=== PATIENT | female | born 1965 | race Caucasian/White ===

== ENCOUNTER 2017-09-09 15:00 | Inpatient (IN) | payer MEDICARE ==
[2017-10-19 15:16] VITALS: BMI 29.9
[2017-10-28] MEDS ORDERED: Fentanyl 100 MCG/2 ML VIAL ONE ×4 (07:35→15:32)
[2017-10-28] MEDS ORDERED: Midazolam HCl 2 mg/2 ml Vial ONE (07:35)
[2017-10-28] MEDS ORDERED: Dexamethasone 4 mg/ml Vial ONE (07:36)
[2017-10-28] MEDS ORDERED: CEFAZOLIN/Water 2 GM/20 ML SYRINGE ONE (07:43)
[2017-10-28] MEDS ORDERED: Levofloxacin 500 mg/D5W 100 ml Premix Bag ONE (07:44)
[2017-10-28] MEDS ORDERED: Bupivacaine PF 0.5% 30 ML VIAL ONE (10:16)
[2017-10-28] MEDS ORDERED: Bupivacaine HCl 0.5%/Epinephrine 1:200,000/PF 30 ml Vial ONE (10:16)
[2017-10-28] MEDS ORDERED: Dexamethasone 20 MG/5 ML VIAL ONE (10:34)
[2017-10-28] MEDS ORDERED: Lidocaine 1% PF 5 ML VIAL ONE (10:34)
[2017-10-28] MEDS ORDERED: Ondansetron HCl/PF 4 MG/2 ML Vial ONE (10:34)
[2017-10-28] MEDS ORDERED: Glycopyrrolate 0.2 MG/ML 5 ML SYRINGE ONE (10:34)
[2017-10-28] MEDS ORDERED: PROPOFOL 200 MG/20 ML VIAL ONE (10:34)
[2017-10-28] MEDS ORDERED: Rocuronium Bromide 50 MG/5 ML VIAL ONE (13:07)
[2017-10-28] MEDS ORDERED: Promethazine HCl 25 MG/ML VIAL SLOW IVP PRN (14:45)
[2017-10-28] MEDS ORDERED: Meperidine HCl/PF 25 MG/ML VIAL SLOW IVP PRN (14:45)
[2017-10-28] MEDS ORDERED: Ondansetron HCl/PF 4 MG/2 ML Vial IVP PRN ×2 (14:45→18:04)
[2017-10-28] MEDS ORDERED: HYDROmorphone 2 MG/ML VIAL SLOW IVP PRN (14:45)
[2017-10-28] MEDS ORDERED: Promethazine HCl 25 MG/ML VIAL IM PRN ×2 (14:45→18:04)
[2017-10-28] MEDS ORDERED: Docusate 100 MG CAP PO PRN (15:16)
[2017-10-28] MEDS ORDERED: diphenhydrAMINE 25 MG CAP PO PRN ×2 (15:16→18:04)
[2017-10-28] MEDS ORDERED: Dextrose 50% Abboject 50 ML SYRINGE SLOW IVP PRN (15:16)
[2017-10-28] MEDS ORDERED: Dextrose 5% in Water 1,000 ML IV PRN (15:16)
[2017-10-28] MEDS ORDERED: Bisacodyl 10 MG SUPP PR PRN (15:16)
[2017-10-28] MEDS ORDERED: oxyCODONE 5 MG TAB PO PRN ×2 (15:16)
[2017-10-28] MEDS ORDERED: Fentanyl 100 MCG/2 ML VIAL SLOW IVP PRN (15:16)
[2017-10-28] MEDS ORDERED: hydrALAZINE 20 MG/ML VIAL SLOW IVP PRN (15:16)
[2017-10-28] MEDS ORDERED: Mag-Al 1200 mg/1200 mg/30 ML UDCUP PO PRN (15:16)
[2017-10-28] MEDS ORDERED: Oxybutynin 5 MG TAB PO PRN (15:16)
[2017-10-28] MEDS ORDERED: traMADol HCl 50 MG TAB PO SCH (16:00)
[2017-10-28] MEDS ORDERED: HYDROmorphone 0.5 MG/0.5 ML SYRINGE ONE (16:05)
[2017-10-28 16:24] LABS: Hemoglobin 13.9 g/dL (12.0-16.0); Mean Corpuscular HGB CONC 32.8 g/dL (32.0-36.0); Mean Corpuscular Hemoglobin 29.3 pg (27.0-31.0); Mean Corpuscular Volume 89.4 fl (81.0-99.0); Mean Platelet Volume 6.7 fL (7.4-10.4); Platelet Count 218 thou/uL (130-400); RBC Distribution Width 13.1 % (11.5-14.5); Red Blood Cell (RBC) Count 4.75 mill/uL (4.20-5.40); White Blood Cell (WBC) Count 8.7 thou/uL (4.8-10.8)
[2017-10-28 16:42] LABS: Anion Gap 18 mmol/L (10-20); BUN (Urea Nitrogen) 21 mg/dL (9.8-20.1); Calc. Creatinine Clearance 87 mL/min (70-130); Calcium 9.2 mg/dL (7.8-10.44); Carbon Dioxide 23 mmol/L (22-29); Chloride 101 mmol/L (98-107); Estimated GFR-MDRD 61; Glucose 294 mg/dL (70-105); Potassium 4.5 mmol/L (3.5-5.1); Sodium 137 mmol/L (136-145)
--- NOTE | 2017-10-28 16:57 | RAD ---
RADIOGRAPH OF CHEST SINGLE FRONTAL VIEW 10/28/17 COMPARISON: 10/19/17 CLINICAL HISTORY: Status post removal of renal mass. FINDINGS: There is alveolar opacification of the right lower lung zone. Mild atelectasis seen at the left lung base. The cardiac silhouette is accentuated with portable technique. There is vascular calcification and mild osseous degenerative change. IMPRESSION: Focal patchy opacity of the right lower lung zone. This may relate to atelectasis or pneumonitis. Con tinued followup is recommended. POS: [facility]
--- NOTE | 2017-10-28 17:31 | OP ---
DATE OF PROCEDURE: 10/28/2017 SERVICE: Urology. SURGEON: José Miguel Cleveland M.D. PREOPERATIVE DIAGNOSIS: Left renal mass. POSTOPERATIVE DIAGNOSIS: Left renal mass. PROCEDURE PERFORMED: Robot-assisted laparoscopic partial nephrectomy on the left with intraoperative laparoscopic ultrasound. INDICATIONS FOR PROCEDURE: Ms. Hobbs is a 52-year-old white female who was initially sent to [facility] due to an incidentally discovered small renal mass only measuring about 1.5 cm. She was a good can didate for nephron sparing surgery as this was a relatively exophytic lesion. Risks and benefits of robot-assisted laparoscopic partial nephrectomy were discussed and she has agreed to proceed forward. DESCRIPTION OF PROCEDURE: After identification of armband and verification of consent, the patient w as brought back to the operating room where she underwent general anesthesia with endotracheal intuba tion. She was then placed in the right lateral decubitus position with the bed flexed and the kidney rest up for adequate positioning. She was then prepped and draped in the usual sterile fashion. Af ter appropriate timeout, entry was made into the peritoneum with a Veress needle with insufflation ca rried out under high flow and low pressure. Once 15 mmHg was reached, a 12 mm port was placed at the camera site just lateral to the rectus muscle. A #1 and #2 robotic arms were placed in the usual fa shion for partial nephrectomy with the third care assistant port placed in the left lower quadrant. One a ssistant 12 mm port was placed as well just left of the camera port. A few adhesions had to be taken down before the robot was docked to allow for proper entry of the robotic instruments, then the robo t was docked in the standard fashion. A dissection was started with the monopolar scissors and fenes trated bipolar with ProGrasp in the third arm. The remaining adhesions near the spleen were taken do wn and the colon was mobilized by incising the white line of Toldt along the peritoneum and reflectin g the colon medially. The spleen was released from the splenocolic and splenorenal ligaments and fro m the splenodiaphragmatic ligaments to allow proper mobilization of the spleen cephalad. Once the co ben had been adequately mobilized medially, dissection was begun on the inferior pole of the kidney d issecting out the gonadal vein. The gonadal vein was identified and subsequently the ureter identifi ed posterior and medial so that the gonadal vein was dissected cephalad until the renal vein was enco untered. At this point, we decided to change course and go to see if the renal mass could be enuclea max without clamping. The Gerota's fascia was incised and the perinephric fat removed and rotated ce phalad to keep the vascular pedicle to maintain blood supply. The kidney surface was exposed and the renal cyst was identified which was immediately adjacent to the renal mass. Intraoperative ultrasou nd was used to identify the cyst. It was indeed just a simple cyst without any complex features and the renal mass was just adjacent to this. The renal mass was measured with intraoperative ultrasound and found to be approximately 1.2 x 1.5 cm with a 1.2 cm depth. I felt this would be adequate to ex cise well with a partial nephrectomy. The cyst was punctured and the fluid and contents removed and the cyst unroofed. The wall of the cyst was cauterized with monopolar to destroy the epithelial lini ng to ensure that the cyst did not recur. The mass could be seen bulging into the cyst wall and atte mpts to dissect it began bleeding slightly. I then decided it would probably best not to try to atte mpt to do the renal mass dissection off clamp and we went back to the renal hilum. The gonadal vein was sacrificed by putting Hem-o-Gabriela clip on either side and dividing the gonadal vein. By retracting the renal vein cephalad, the renal artery and aorta could be identified. The stalk of the renal art geovanna could be seen coming off of the aorta and at this part, it was dissected completely free, taking care to avoid the potential large lumbar branch which was noted on CT to be going posteriorly. I did not feel it was comfortable trying to get circumferential access from the renal artery out of fear o f potentially injuring this lumbar artery. Therefore, three-quarters of the renal artery were dissec max leaving the posterior segment intact. Once we had all instruments ready, a bulldog clamp was mustapha lied on the renal artery which immediately caused the kidney to go white. The previously noted minor bleeding from the renal mass stopped indicating that there was good cessation of blood flow to the k idney. The dissection around the renal mass was then completed using a combination of sharp dissecti on with cautery around the periphery and cortex. The renal collecting system was not entered due to the superficial nature of the mass. The mass was completely excised and the borders looked clean. T his was then deposited into the left pericolic gutter for later retrieval. There was some minor blee ding from 2 patent arteries at the base of the resection bed that was very slow but would indicate li steph aggressive bleeding once the clamp was released. Therefore a 2-0 Vicryl in a running fashion wa s used to close the bed of the kidney. Then the main defect in renal orifice was performed with 0 Vi cryl with Hem-o-Loks on the end, used to slide in the sliding maneuver to cinch up the defect and a L apra-Ty used to secure the Hem-o-Gabriela in place. Approximately, 4 individual sutures were placed to cl ose the defect and this did result in adequate hemostasis. The clamp was taken off with a total warm ischemia time of 20 minutes with good reperfusion of the kidney. There was not noted to be any sign ificant bleeding coming from the renal orifice site which was very content with. The hilum was inspe cted and there did not appear to be any bleeding or damage to the renal hilar vasculature. The renal orifice site was then covered with FloSeal and then Surgicel. The fat that had been rotated cephala d was then rotated back over to the kidney again and sutured in place with a single 0 Vicryl to ensur e that it did not fall off the kidney. A specimen bag was then used to retrieve the tumor which cons isted of three parts, the tumor itself, a cap of perinephric fat as well as a small piece which had b een dissected separately. This was able to be removed through the laparoscopic port given the small nature of the renal mass. The peritoneum was then irrigated and a drain placed in the left pericolic gutter. The robot was then undocked and the two #12 ports, one for the camera and one for the krystyna tant were closed with a Benito-Dori needle with 0 Vicryl with good closure of the fascia. The po rts were then removed and the skin closed with a 4-0 Monocryl in a subcuticular fashion with Dermabon d applied. A drain stitch was applied with a 3-0 nylon on the #19 KRYSTA drain. The patient was then ta yuval out of positioning in to the supine position, extubated, awakened and taken to PACU for recovery in stable condition. COMPLICATIONS: None. ESTIMATED BLOOD LOSS: 75 mL RETAINED TUBES AND DRAINS: A 16 Hebrew Calderón catheter with a #19 KRYSTA drain. SPECIMENS: Left renal mass. DISPOSITION: Patient will be admitted to the hospital for postoperative recovery. She will be disch arged once she has recovered adequately and her follow up will be then handled on an outpatient basis .
[2017-10-28] MEDS ORDERED: Fentanyl 5000 MCG/250 ML CADD IVPB PRN (18:04)
[2017-10-28] MEDS ORDERED: diphenhydrAMINE 50 MG/ML VIAL IM PRN (18:04)
[2017-10-28] MEDS ORDERED: Naloxone HCl 0.4 mg/ml Vial IV PRN (18:04)
[2017-10-28] MEDS ORDERED: Ketorolac Tromethamine 30 MG/ML VIAL IVP PRN (18:04)
[2017-10-28] MEDS ORDERED: diphenhydrAMINE 50 MG/ML VIAL IVP PRN (18:04)
[2017-10-28] MEDS ORDERED: Zolpidem Tartrate 5 MG TAB PO PRN (18:04)
[2017-10-28] MEDS ORDERED: Communication Order-Pharmacy FS SCH (18:15)
[2017-10-28] MEDS: fentaNYL Citrate/PF 2,000 MCG in Sodium Chloride 0.9% 60 ML IV PRN (18:49)
[2017-10-28] MEDS: Acetaminophen 500 MG TAB PO SCH (19:08)
[2017-10-28] MEDS: Sodium Chloride 0.9% 1,000 ML IV SCH (20:39)
[2017-10-28] MEDS: busPIRone HCl 10 MG TAB PO SCH (20:40)
[2017-10-28] MEDS: cefOXitin 1.5 GM, Admixture Fee 1 EACH in Sterile Water 8.33 ML SLOW IVP SCH (20:40)
[2017-10-28] MEDS: Latanoprost 0.005% Ophth Soln 2.5 ml Bottle EA EYE SCH (20:40)
[2017-10-28] MEDS: hydrOXYzine 25 MG TAB PO SCH (20:41)
[2017-10-28] MEDS: OXcarbazepine 150 MG TAB PO SCH (20:41)
[2017-10-28] MEDS: PRE FILLED SC SCH (20:48)
[2017-10-28] MEDS: INSULIN DETEMIR SC SCH (20:48)
[2017-10-28] MEDS ORDERED: cefOXitin 1.5 GM in Sodium Chloride 0.9% 100 ML IVPB SCH (22:00)
[2017-10-29 05:28] LABS: #Lymphocytes 1.4 thou/uL (1.20-3.40); #Monocytes 0.7 thou/uL (0.11-0.59); #Neutrophils 6.5 thou/uL (1.40-6.50); %Basophils 0.3 % (0.0-1.0); %Eosinophils 0.1 % (0.0-10.0); %Lymphocytes 16.1 % (21.0-51.0); %Neutrophils 75.4 % (42.0-75.0); Hemoglobin 12.9 g/dL (12.0-16.0); Mean Corpuscular HGB CONC 35.4 g/dL (32.0-36.0); Mean Corpuscular Hemoglobin 31.9 pg (27.0-31.0); Mean Platelet Volume 6.6 fL (7.4-10.4); Platelet Count 201 thou/uL (130-400); RBC Distribution Width 12.9 % (11.5-14.5); Red Blood Cell (RBC) Count 4.05 mill/uL (4.20-5.40); White Blood Cell (WBC) Count 8.6 thou/uL (4.8-10.8)
[2017-10-29 05:56] LABS: Anion Gap 13 mmol/L (10-20); BUN (Urea Nitrogen) 15 mg/dL (9.8-20.1); Calc. Creatinine Clearance 108 mL/min (70-130); Calcium 8.8 mg/dL (7.8-10.44); Carbon Dioxide 25 mmol/L (22-29); Chloride 104 mmol/L (98-107); Estimated GFR-MDRD 78; Glucose 130 mg/dL (70-105); Potassium 4.4 mmol/L (3.5-5.1); Sodium 138 mmol/L (136-145)
[2017-10-29] MEDS: Acetaminophen 500 MG TAB PO SCH ×2 (06:29)
[2017-10-29] MEDS: Sodium Chloride 0.9% 1,000 ML IV SCH (06:29)
[2017-10-29] MEDS: cefOXitin 1.5 GM, Admixture Fee 1 EACH in Sterile Water 8.33 ML SLOW IVP SCH ×2 (06:29→17:40)
[2017-10-29] MEDS: busPIRone HCl 10 MG TAB PO SCH ×3 (08:27→20:08)
[2017-10-29] MEDS: Atorvastatin Calcium 20 MG TAB PO SCH (08:28)
[2017-10-29] MEDS: FLUoxetine HCl 20 MG CAP PO SCH (08:28)
[2017-10-29] MEDS: Pantoprazole 40 MG GRANULES PACKET PO SCH (08:28)
[2017-10-29] MEDS: Lisinopril/Hydrochlorothiazide 20/25 mg Tablet PO SCH (08:28)
[2017-10-29] MEDS: OXcarbazepine 150 MG TAB PO SCH ×2 (08:29→20:08)
[2017-10-29] MEDS: fentaNYL Citrate/PF 2,000 MCG in Sodium Chloride 0.9% 60 ML IV PRN ×2 (11:01→20:10)
[2017-10-29] MEDS: Acetaminophen 1,000 MG in Premix Bag 1 BAG IVPB SCH ×3 (11:01→23:18)
--- NOTE | 2017-10-29 15:59 | PRG ---
DATE OF SERVICE: 10/29/2017 SUBJECTIVE: The patient was having significant pain overnight, which was not well controlled on petey vargas US protocol medications. I consulted pain management service, which had started her on a SALON SHAMPOO ASSISTANT ov ernwendy and she is now feeling better. She reports her pain is currently a 4/10. She has not gotten out of bed as I had her on bed rest overnight. She has not passed any gas. She states she has no a ppetite, but has been taking good p.o. liquid. She denies any chest pain or shortness of breath. OBJECTIVE: VITAL SIGNS: Temperature 98.4, pulse 85, respirations 14, blood pressure 115/73, saturation 94% on 2 liters nasal cannula. GENERAL: No apparent distress, appears relatively comfortable. CARDIOVASCULAR: Regular rate and rhythm. CHEST: No increased work of breathing. ABDOMEN: Soft, appropriately tender to palpation, nondistended. Incisions clean, dry, and intact. KRYSTA drain with scant serosanguineous output. GENITOURINARY: Calderón catheter in place with clear yellow urine secured. EXTREMITIES: No clubbing, cyanosis or edema. SCDs in place. LABORATORY DATA AND X-RAY FINDINGS: The full set of labs are in the [employer] system, which I have re viewed. Of note, the patient's hemoglobin is 12.9 with a platelet count of 201. Creatinine is curre ntly 0.77. Chest x-ray from yesterday demonstrates focal consolidation in the right lower lobe, but no evidence of pneumothorax. ASSESSMENT AND PLAN: A 52-year-old white female with likely malignant renal mass, status post roboti c left partial nephrectomy, recovering appropriately. Her pain seems to be better controlled. I alisa l leave her with the SALON SHAMPOO ASSISTANT today, but I have told her that we will need to transition her back off of t he SALON SHAMPOO ASSISTANT back to oral pain medication. As time progresses, her pain should improve. I lifted the bed rest restriction and have her get up out of bed and walk today. We will discontinue her catheter. H er diet can be advanced as tolerated to a regular diet. We will discontinue her intravenous fluids f or now unless she is taking poor, continued p.o. intake, at which time we will restart IV fluids. On ce she is able to ambulate well, tolerated a regular diet, have her pain controlled with oral medicat ions only and continues to have normal laboratory and vital profile, then she can be discharged home and her followup care can be handled on an outpatient basis. Dr. Lord will be covering for me over the weekend and will see her in my status.
[2017-10-29] MEDS: Ondansetron HCl/PF 4 MG/2 ML Vial IVP PRN (17:39)
[2017-10-29] MEDS: Latanoprost 0.005% Ophth Soln 2.5 ml Bottle EA EYE SCH (20:08)
[2017-10-29] MEDS: hydrOXYzine 25 MG TAB PO SCH (20:09)
[2017-10-29] MEDS: PRE FILLED SC SCH (20:09)
[2017-10-29] MEDS: INSULIN DETEMIR SC SCH (20:09)
[2017-10-30 05:03] LABS: #Basophils 0.1 thou/uL (0.0-0.2); #Eosinphils 0.1 thou/uL (0.0-0.7); #Lymphocytes 1.3 thou/uL (1.20-3.40); #Monocytes 0.4 thou/uL (0.11-0.59); #Neutrophils 4.3 thou/uL (1.40-6.50); %Basophils 1.1 % (0.0-1.0); %Lymphocytes 20.5 % (21.0-51.0); %Monocytes 6.7 % (0.0-10.0); %Neutrophils 70.6 % (42.0-75.0); Mean Corpuscular HGB CONC 33.5 g/dL (32.0-36.0); Mean Corpuscular Hemoglobin 30.2 pg (27.0-31.0); Mean Corpuscular Volume 90.1 fl (81.0-99.0); Mean Platelet Volume 6.7 fL (7.4-10.4); Platelet Count 186 thou/uL (130-400); Red Blood Cell (RBC) Count 3.97 mill/uL (4.20-5.40); White Blood Cell (WBC) Count 6.1 thou/uL (4.8-10.8)
[2017-10-30] MEDS: Ondansetron HCl/PF 4 MG/2 ML Vial IVP PRN ×2 (05:05→09:31)
[2017-10-30] MEDS: Acetaminophen 1,000 MG in Premix Bag 1 BAG IVPB SCH ×2 (05:05→10:25)
[2017-10-30 05:26] LABS: Anion Gap 11 mmol/L (10-20); BUN (Urea Nitrogen) 13 mg/dL (9.8-20.1); Calc. Creatinine Clearance 114 mL/min (70-130); Calcium 8.8 mg/dL (7.8-10.44); Carbon Dioxide 26 mmol/L (22-29); Chloride 101 mmol/L (98-107); Estimated GFR-MDRD 83; Glucose 170 mg/dL (70-105); Potassium 3.6 mmol/L (3.5-5.1); Sodium 134 mmol/L (136-145)
--- NOTE | 2017-10-30 10:00 | PRG ---
DATE OF SERVICE: 10/30/2017 SUBJECTIVE: The patient did well overnight and has no specific complaints. She is not nauseous. Sh sandrine has been passing gas and tolerating liquids. She recognizes she needs to be ambulating more as she has not. OBJECTIVE: VITAL SIGNS: T-max is 99, temperature 98.4, heart rate elevated at 100-104, blood pressure is stable , and 93%, prior 88% on room air. GENERAL: She is lying in the bed. She is able to sit up with assistance and do incentive spirometry . LUNGS: Clear to auscultation with expiratory wheeze. ABDOMEN: Softly distended and appropriately tender. LABORATORY DATA: Her H and H are stable at 12.0 and 35.8, creatinine is good at 0.73. ASSESSMENT AND PLAN: A 52-year-old status post partial nephrectomy, postoperative day #2, still rece iving IV pain medications with minimal ambulation and the respiratory effort. I emphasized the need to ambulate using incentive spirometer and potentially the need for oxygen if she does not do these t hings. We will try to switch over to oral pain medicines today.
[2017-10-30] MEDS: Pantoprazole 40 MG GRANULES PACKET PO SCH (10:25)
[2017-10-30] MEDS: busPIRone HCl 10 MG TAB PO SCH ×3 (10:25→20:05)
[2017-10-30] MEDS: Lisinopril/Hydrochlorothiazide 20/25 mg Tablet PO SCH (10:26)
[2017-10-30] MEDS: Atorvastatin Calcium 20 MG TAB PO SCH (10:26)
[2017-10-30] MEDS: FLUoxetine HCl 20 MG CAP PO SCH (10:26)
[2017-10-30] MEDS: OXcarbazepine 150 MG TAB PO SCH ×2 (10:35→20:06)
[2017-10-30] MEDS ORDERED: HYDROcodone/Acetaminophen 5/325 mg Tablet PO PRN (12:28)
[2017-10-30] MEDS ORDERED: Morphine 2 MG/ML SYRINGE SLOW IVP PRN (12:34)
[2017-10-30] MEDS: Diazepam 5 MG TAB PO PRN (13:01)
[2017-10-30] MEDS: HYDROcodone/Acetaminophen 5/325 mg Tablet PO PRN ×2 (16:55→21:20)
[2017-10-30] MEDS: traMADol HCl 50 MG TAB PO SCH (16:56)
[2017-10-30] MEDS: hydrOXYzine 25 MG TAB PO SCH (20:06)
[2017-10-30] MEDS: Latanoprost 0.005% Ophth Soln 2.5 ml Bottle EA EYE SCH (20:14)
[2017-10-30] MEDS ORDERED: Docusate 100 MG CAP PO SCH (21:00)
[2017-10-30] MEDS: PRE FILLED SC SCH (21:14)
[2017-10-30] MEDS: INSULIN DETEMIR SC SCH (21:14)
[2017-10-30] MEDS: Insulin Regular 300 UNITS/3 ML VIAL SC PRN (21:21)
[2017-10-31] MEDS: traMADol HCl 50 MG TAB PO SCH ×4 (00:13→17:07)
[2017-10-31] MEDS: Diazepam 5 MG TAB PO PRN ×2 (00:13→12:44)
[2017-10-31] MEDS: HYDROcodone/Acetaminophen 5/325 mg Tablet PO PRN ×5 (01:34→20:58)
[2017-10-31 04:44] LABS: #Eosinphils 0.1 thou/uL (0.0-0.7); #Lymphocytes 1.9 thou/uL (1.20-3.40); #Monocytes 0.5 thou/uL (0.11-0.59); #Neutrophils 3.9 thou/uL (1.40-6.50); %Basophils 0.4 % (0.0-1.0); %Eosinophils 1.6 % (0.0-10.0); %Lymphocytes 28.8 % (21.0-51.0); %Monocytes 8.1 % (0.0-10.0); %Neutrophils 61.1 % (42.0-75.0); Hemoglobin 11.7 g/dL (12.0-16.0); Mean Corpuscular Hemoglobin 29.2 pg (27.0-31.0); Mean Corpuscular Volume 88.6 fl (81.0-99.0); Mean Platelet Volume 6.7 fL (7.4-10.4); Platelet Count 193 thou/uL (130-400); RBC Distribution Width 12.5 % (11.5-14.5); Red Blood Cell (RBC) Count 4.01 mill/uL (4.20-5.40); White Blood Cell (WBC) Count 6.4 thou/uL (4.8-10.8)
[2017-10-31 04:56] LABS: Anion Gap 13 mmol/L (10-20); BUN (Urea Nitrogen) 11 mg/dL (9.8-20.1); Calc. Creatinine Clearance 108 mL/min (70-130); Calcium 9.3 mg/dL (7.8-10.44); Carbon Dioxide 29 mmol/L (22-29); Chloride 98 mmol/L (98-107); Estimated GFR-MDRD 78; Glucose 134 mg/dL (70-105); Potassium 3.1 mmol/L (3.5-5.1); Sodium 137 mmol/L (136-145)
[2017-10-31] MEDS ORDERED: Potassium Chloride 20 MEQ TAB PO SCH (08:30)
[2017-10-31] MEDS: busPIRone HCl 10 MG TAB PO SCH ×3 (09:31→20:53)
[2017-10-31] MEDS: Atorvastatin Calcium 20 MG TAB PO SCH (09:31)
[2017-10-31] MEDS: FLUoxetine HCl 20 MG CAP PO SCH (09:32)
[2017-10-31] MEDS: Lisinopril/Hydrochlorothiazide 20/25 mg Tablet PO SCH (09:33)
[2017-10-31] MEDS: OXcarbazepine 150 MG TAB PO SCH ×2 (09:33→20:56)
[2017-10-31] MEDS: Pantoprazole 40 MG GRANULES PACKET PO SCH (09:34)
[2017-10-31] MEDS: Insulin Regular 300 UNITS/3 ML VIAL SC PRN ×2 (15:59→21:00)
--- NOTE | 2017-10-31 18:53 | PRG ---
DATE OF SERVICE: 10/31/2017. SUBJECTIVE: The patient did well overnight. She does not recall even getting any IV pain medicine and she has no complaints of significant pain at this time ; however, it does look like she got one dose about 7:00 p.m. the night before. She has otherwise been tolerating pain medicine by mouth. She has not had significant solid intake, but has been taking in liquids and still passing gas without any nausea or vomiting. OBJECTIVE: Her vitals have been stable and afebrile and her saturations improved from the day prior. On exam, she is comfortable in the bed. Her incisions are clean, dry, and intact with ecchymosis around them noted and appropriately tender. Laboratory values reveal an H&H of 11.7 and 35.6, so this has been stable. Creatinine is 0.77 and she has been registered as voiding without measuring any specific amount. ASSESSMENT AND PLAN: This is a 52-year-old female status post partial nephrectomy, doing well. As long as she has not required any IV medications, then she is stable enough to be discharged to home. At this time, we reviewed this and Dr. Cleveland has left her prescriptions and set a followup. HANSA
[2017-10-31] MEDS: hydrOXYzine 25 MG TAB PO SCH (20:53)
[2017-10-31] MEDS: INSULIN DETEMIR SC SCH (20:54)
[2017-10-31] MEDS: PRE FILLED SC SCH (20:54)
[2017-10-31] MEDS: Latanoprost 0.005% Ophth Soln 2.5 ml Bottle EA EYE SCH (20:55)
[2017-11-01] MEDS: traMADol HCl 50 MG TAB PO SCH ×3 (00:09→12:07)
[2017-11-01 05:32] LABS: #Eosinphils 0.2 thou/uL (0.0-0.7); #Lymphocytes 1.4 thou/uL (1.20-3.40); #Monocytes 0.4 thou/uL (0.11-0.59); #Neutrophils 2.2 thou/uL (1.40-6.50); %Basophils 0.5 % (0.0-1.0); %Eosinophils 4.4 % (0.0-10.0); %Lymphocytes 33.7 % (21.0-51.0); %Monocytes 9.8 % (0.0-10.0); %Neutrophils 51.5 % (42.0-75.0); Hemoglobin 12.3 g/dL (12.0-16.0); Mean Corpuscular HGB CONC 33.5 g/dL (32.0-36.0); Mean Corpuscular Hemoglobin 30.1 pg (27.0-31.0); Mean Platelet Volume 6.7 fL (7.4-10.4); Platelet Count 224 thou/uL (130-400); RBC Distribution Width 12.7 % (11.5-14.5); Red Blood Cell (RBC) Count 4.08 mill/uL (4.20-5.40); White Blood Cell (WBC) Count 4.3 thou/uL (4.8-10.8)
[2017-11-01 05:38] LABS: Anion Gap 14 mmol/L (10-20); BUN (Urea Nitrogen) 15 mg/dL (9.8-20.1); Calc. Creatinine Clearance 106 mL/min (70-130); Calcium 9.5 mg/dL (7.8-10.44); Carbon Dioxide 29 mmol/L (22-29); Chloride 100 mmol/L (98-107); Estimated GFR-MDRD 77; Glucose 160 mg/dL (70-105); Potassium 3.3 mmol/L (3.5-5.1); Sodium 140 mmol/L (136-145)
[2017-11-01] MEDS: HYDROcodone/Acetaminophen 5/325 mg Tablet PO PRN ×2 (06:45→12:36)
[2017-11-01] MEDS: busPIRone HCl 10 MG TAB PO SCH (09:21)
[2017-11-01] MEDS: Atorvastatin Calcium 20 MG TAB PO SCH (09:22)
[2017-11-01] MEDS: Lisinopril/Hydrochlorothiazide 20/25 mg Tablet PO SCH (09:22)
[2017-11-01] MEDS: FLUoxetine HCl 20 MG CAP PO SCH (09:22)
[2017-11-01] MEDS: OXcarbazepine 150 MG TAB PO SCH (09:22)
[2017-11-01] MEDS: Pantoprazole 40 MG GRANULES PACKET PO SCH (09:23)
[2017-11-01 12:28] VITALS: BP 142/92; TEMP 98.4
--- NOTE | 2017-11-02 14:06 | DIS ---
DATE OF ADMISSION: 10/28/2017 DATE OF DISCHARGE: 11/01/2017 ADMITTING DIAGNOSIS: Left renal mass. DISCHARGE DIAGNOSES: Left low grade renal cell carcinoma, clear cell type. ADMITTING PHYSICIAN: Jsoé Miguel Cleveland M.D. DISCHARGE PHYSICIAN: José Miguel Cleveland M.D. PROCEDURE PERFORMED WHILE INPATIENT: Left robot-assisted laparoscopic partial nephrectomy. HOSPITAL COURSE: Ms. Hobbs is a 52-year-old white female who initially had been sent to see me for a small left renal mass measuring approximately 1.5 cm. We discussed a laparoscopic or robotic partial nephrectomy, which she was a good candidate for. The risk and benefits of the surgery were d iscussed and she wished to proceed forward. The full H&P can be found in the dictated or scan portio n of the [employer] system. HOSPITAL COURSE: After her surgery (please operative note for details) the patient was admitted to [facility] for postoperative recovery. The patient's pain levels were poorly controlled on postoper ative day 0, therefore, on postop day #1 we consulted Pain Management Service to come see her. They started her on a fentanyl IMPORT SPECIALIST which seemed to provide better pain control. She did have some worseni ng of her pain on postoperative day 2 requiring increasing of her IMPORT SPECIALIST dose. Over the weekend Dr. Derek pierce took over as I was not available in town. During this time she was weaned off of her IMPORT SPECIALIST with in termittent issues with pain control. Her pain was poorly controlled initially and then subsequently became better on oral pain medication. Her Calderón catheter was removed on postoperative day #1 and carballo bsequently a KRYSTA drain removed on postoperative day #2 as it had put out very little fluid. Her vital s remained stable. Her laboratory evaluation was good. She had no evidence of acute kidney injury a nd no evidence of urine leak. Her primary stay in the hospital was due to pain control issues. By p ostoperative day #4, the patient wanted to go home. Her pain was better controlled on oral pain medi cations, although she still had some intermittent pain. She has been tolerating a regular diet, had not had a bowel movement, but had passed gas and was nondistended on her abdomen. She had no nausea or vomiting. Her vitals looked good and her laboratory evaluation was satisfactory. The patient had voided and had been ambulating well. She did have some low oxygen saturations while in the hospital primarily due to atelectasis which improved with incentive spirometry and ambulation. She was disch arged home on 11/01/2017. DISPOSITION: Discharge to home. DISCHARGE CONDITION: Good. DISCHARGE INSTRUCTIONS: Include no heavy lifting, no strenuous activity. No driving for approximate ly 1 week, no submerging underwater although showers are okay. She should notify me for chest pain, shortness of breath, uncontrolled pain, persistent nausea or vomiting or any other concerning signs o r symptoms the patient may have. FOLLOWUP: Follow up will be in approximately 1-2 weeks for a postop check.
--- NOTE | 2017-11-02 14:10 | PRG ---
DATE OF SERVICE: 11/01/2017 SUBJECTIVE: The patient states her pain was poorly controlled over the weekend. She was switched to [place] which she felt was not adequate for her pain control initially. She is now feeling a little b it better and states her pain is not as bad at the current time. She has been up out of bed, walking . She has passed gas. She has not had a good bowel movement. She is eating a regular diet. Her vi tals have been okay other than some poor oxygen saturations intermittently. OBJECTIVE: VITAL SIGNS: Temperature 98.4, pulse 66, respirations 16, blood pressure 142/92, saturation 94% on r oom air. GENERAL: No apparent distress, communicative and alert. CARDIOVASCULAR: Regular rate and rhythm. CHEST: No increased work of breathing, bibasilar crackles. ABDOMEN: Soft, appropriately tender to palpation, nondistended. Incisions clean, dry, and intact. Ecchymoses resolving. EXTREMITIES: No clubbing, cyanosis or edema. LABORATORY DATA: A full set of labs in the [employer] system, which I have reviewed. Of note, the pat ient's white count is 4.3 with hemoglobin of 12.3. Creatinine is 0.78. ASSESSMENT AND PLAN: A 52-year-old white female with a left renal mass which pathology demonstrated a low grade clear cell carcinoma with negative margins. The patient is postoperative day 4 primaril y due to insufficient pain control. Her pain is better controlled now and her oxygen saturations whi ch were initially low have improved significantly with incentive spirometry and ambulation. I do not suspect DVT or pulmonary embolism secondary to improved saturations with walking. She has not had a ny chest pain and is not complaining of any shortness of breath. Her pain is better controlled now w ith oral pain medications and the patient states she would like to go home at this point. I think sandrine can be cleared for discharge and will follow up with her in approximately 1-2 weeks for a postop ch jackson.
== END 2017-11-01 14:45 | disposition home or self-care (01) | DRG 658 ==
LOC: SURG A 10-28 07:26 → SJJU 10-28 15:52
PROVIDERS: ADMIT Urology; ATTEND Urology
PROC: 0TB14ZZ Excision of Left Kidney, Percutaneous Endoscopic Approach (ICD-10-PCS; principal; 2017-10-28)
PROC: 8E0W4CZ Robotic Assisted Procedure of Trunk Region, Percutaneous Endoscopic Approach (ICD-10-PCS; 2017-10-28)
PROC: 3E0T3BZ Introduction of Anesthetic Agent into Peripheral Nerves and Plexi, Percutaneous Approach (ICD-10-PCS; 2017-10-28)
PROC: 3E0T33Z Introduction of Anti-inflammatory into Peripheral Nerves and Plexi, Percutaneous Approach (ICD-10-PCS; 2017-10-28)
DX: C64.2 Malignant neoplasm of left kidney, except renal pelvis (principal); E11.9 Type 2 diabetes mellitus without complications; F31.9 Bipolar disorder, unspecified; G89.18 Other acute postprocedural pain; Z88.1 Allergy status to other antibiotic agents; Z88.8 Allergy status to other drugs, medicaments and biological substances; F41.9 Anxiety disorder, unspecified; I10 Essential (primary) hypertension; E78.5 Hyperlipidemia, unspecified; G89.4 Chronic pain syndrome; Z79.4 Long term (current) use of insulin; F17.210 Nicotine dependence, cigarettes, uncomplicated; F19.11 Other psychoactive substance abuse, in remission
CPT/HCPCS: 36415; 36416; 71045; 80048; 85025; 85027; 86850; 86900; 86901; 88307; A4216; J0131; J0670; J0694; J1100; J1170; J1815; J1885; J1956; J2001; J2250; J2270; J2405; J2550; J2704; J3010; J7050; S0020

== ENCOUNTER 2017-10-19 14:51 | Outpatient (CLI) | payer MEDICARE ==
--- NOTE | 2017-10-19 16:17 | RAD ---
PA AND LATERAL CHEST X-RAY 10/19/17 HISTORY: Preoperative evaluation. COMPARISON: 03/20/14. FINDINGS: The cardiac silhouette and pulmonary vasculature are within normal limits. The lungs remain clear. Th ere has been no interval change from prior study. IMPRESSION: No acute cardiopulmonary process. POS: [facility]
[2017-10-19 16:28] LABS: Hemoglobin 13.1 g/dL (12.0-16.0); Mean Corpuscular HGB CONC 33.4 g/dL (32.0-36.0); Mean Corpuscular Volume 89.7 fl (81.0-99.0); Mean Platelet Volume 6.6 fL (7.4-10.4); Platelet Count 240 thou/uL (130-400); Red Blood Cell (RBC) Count 4.36 mill/uL (4.20-5.40); White Blood Cell (WBC) Count 5.3 thou/uL (4.8-10.8)
[2017-10-19 16:34] LABS: Bilirubin Negative (Negative); Blood, Urine Negative (Negative); Clarity CLOUDY (Clear); Glucose, Urine (Dipstick) Negative (Negative); Leukocyte Trace (Negative); Nitrite Negative (Negative); Protein, Urine (Dipstick) 30 mg/dL (Neg-Trace); Specific Gravity, Urine 1.023 (1.002-1.036); WBC/HPF None Seen HPF (0-3); pH, Urine 7.5 (5.0-9.0)
[2017-10-19 16:35] LABS: INR-International Normal Ratio 1.1; PTT 34.2 SEC (22.9-36.1); Prothrombin Time 14.2 SEC (12.0-14.7)
[2017-10-19 16:39] LABS: Pathc Cast-AUWi Flag 2.98 (0-2.49); Yeast-AUWi Flag 30.4 (0-25.0)
[2017-10-19 16:50] LABS: ALT (SGPT) 15 U/L (8-55); AST (SGOT) 17 U/L (5-34); Albumin 4.1 g/dL (3.5-5.0); Alkaline Phosphatase 92 U/L (40-150); Anion Gap 14 mmol/L (10-20); BUN (Urea Nitrogen) 15 mg/dL (9.8-20.1); Bacteria/HPF 1+ HPF (None Seen); Bilirubin, Total 0.3 mg/dL (0.2-1.2); Calc. Creatinine Clearance 0 mL/min (70-130); Calcium 9.4 mg/dL (7.8-10.44); Carbon Dioxide 27 mmol/L (22-29); Chloride 104 mmol/L (98-107); Estimated GFR-MDRD 81; Globulin 2.3 g/dL (2.4-3.5); Glucose 114 mg/dL (70-105); Hyaline Casts/LPF NONE SEEN LPF (0-3 Hyaline); Manual Microscopic Reviewed? No Path Casts Seen; Potassium 4.3 mmol/L (3.5-5.1); Protein, Total 6.4 g/dL (6.0-8.3); RBC/HPF None Seen HPF (0-3); Sodium 141 mmol/L (136-145); Squamous Epithelial 0-3 HPF (0-3); Yeast-All Forms Rare HPF (None Seen)
--- NOTE | 2017-11-12 16:38 | EKG ---
Test Reason : Blood Pressure : / mmHG Vent. Rate : 064 BPM Atrial Rate : 064 BPM P-R Int : 168 ms QRS Dur : 084 ms QT Int : 438 ms P-R-T Axes : 074 085 065 degrees QTc Int : 451 ms Normal sinus rhythm Normal ECG When compared with ECG of 19-OCT-2017 15:47, (Unconfirmed) No significant change was found Confirmed by DR. Pavithra JHA ([id number]) on 11/12/2017 4:37:52 PM Referred By: NATHALIA Confirmed By:DR. Pavithra JHA
== END 2017-10-19 14:52 | disposition home or self-care (01) ==
LOC: LABBT 14:51
PROVIDERS: ATTEND Urology
DX: Z01.818 Encounter for other preprocedural examination (principal); N28.89 Other specified disorders of kidney and ureter
CPT/HCPCS: 71046; 80053; 81001; 85027; 85610; 85730; 87086; 93005; 93010

== ENCOUNTER 2017-10-27 11:50 | Outpatient (CLI) | payer MEDICARE | END 2017-10-27 11:51 | disposition home or self-care (01) | LOC: LABBT 11:50 | PROVIDERS: ATTEND Urology | DX: Z01.812 Encounter for preprocedural laboratory examination (principal); N28.89 Other specified disorders of kidney and ureter | CPT/HCPCS: 86850; 86900; 86901 ==

== ENCOUNTER 2017-11-19 09:52 | Outpatient (CLI) | payer MEDICARE ==
[2017-11-19] MEDS ORDERED: Iopamidol 370 76% 100 ML VIAL ONE (16:37)
== END 2017-11-19 09:53 | disposition home or self-care (01) ==
LOC: BICCT 09:52
PROVIDERS: ATTEND Urology
DX: R10.32 Left lower quadrant pain (principal); R11.2 Nausea with vomiting, unspecified; R50.82 Postprocedural fever; Z98.890 Other specified postprocedural states; Z90.49 Acquired absence of other specified parts of digestive tract
CPT/HCPCS: 74178

== ENCOUNTER 2018-01-04 16:02 | Emergency (ER) | payer MEDICARE ==
[2018-01-04 16:51] LABS: #Basophils 0.1 thou/uL (0.0-0.2); #Eosinphils 0.1 thou/uL (0.0-0.7); #Lymphocytes 1.6 thou/uL (1.20-3.40); #Monocytes 0.4 thou/uL (0.11-0.59); #Neutrophils 2.5 thou/uL (1.40-6.50); %Basophils 1.5 % (0.0-1.0); %Eosinophils 2.3 % (0.0-10.0); %Lymphocytes 34.4 % (21.0-51.0); %Monocytes 8.2 % (0.0-10.0); %Neutrophils 53.6 % (42.0-75.0); Hemoglobin 13.9 g/dL (12.0-16.0); Mean Corpuscular HGB CONC 34.1 g/dL (32.0-36.0); Mean Corpuscular Hemoglobin 28.5 pg (27.0-31.0); Mean Corpuscular Volume 83.6 fl (81.0-99.0); Mean Platelet Volume 6.3 fL (7.4-10.4); Platelet Count 244 thou/uL (130-400); Red Blood Cell (RBC) Count 4.89 mill/uL (4.20-5.40); White Blood Cell (WBC) Count 4.6 thou/uL (4.8-10.8)
[2018-01-04 17:06] LABS: Pregnancy Test - Urine (BHCG) Negative (Negative); Pregu Control Background? CLEAR/WHITE (CLR/WHITE); Pregu Control Bar Appear? YES (CONTROL BAR); Specific Gravity 1.035 (1.002-1.036)
[2018-01-04 17:13] LABS: ALT (SGPT) 36 U/L (8-55); AST (SGOT) 36 U/L (5-34); Albumin 4.5 g/dL (3.5-5.0); Alkaline Phosphatase 104 U/L (40-150); Anion Gap 14 mmol/L (10-20); BUN (Urea Nitrogen) 19 mg/dL (9.8-20.1); Bilirubin, Total 0.4 mg/dL (0.2-1.2); Calc. Creatinine Clearance 0 mL/min (70-130); Calcium 9.9 mg/dL (7.8-10.44); Carbon Dioxide 27 mmol/L (22-29); Chloride 98 mmol/L (98-107); Estimated GFR-MDRD 68; Globulin 2.9 g/dL (2.4-3.5); Glucose 108 mg/dL (70-105); Lipase 14 U/L (8-78); Potassium 3.5 mmol/L (3.5-5.1); Protein, Total 7.4 g/dL (6.0-8.3); Sodium 135 mmol/L (136-145)
== END 2018-01-04 17:13 | disposition left against medical advice (07) ==
LOC: ERS 16:02
DX: Z53.21 Procedure and treatment not carried out due to patient leaving prior to being seen by health care provider (principal)
CPT/HCPCS: 36415; 80053; 81025; 83690; 85025

== ENCOUNTER 2018-03-01 21:54 | Emergency (ER) | payer MEDICARE ==
[2018-03-02] MEDS ORDERED: Morphine 4 MG/ML VIAL ONE (00:18)
[2018-03-02] MEDS ORDERED: Ondansetron ODT 4 MG TAB ONE (00:19)
[2018-03-02 02:11] LABS: Bilirubin Small (Negative); Blood, Urine Large (Negative); Clarity CLEAR (Clear); Glucose, Urine (Dipstick) Negative (Negative); Leukocyte Negative (Negative); Nitrite Negative (Negative); Protein, Urine (Dipstick) Negative (Neg-Trace); Urobilinogen 0.2 mg/dL (0.2-1.0); pH, Urine 5.5 (5.0-9.0)
[2018-03-02 02:14] LABS: Bacteria/HPF None Seen HPF (None Seen); RBC/HPF GREATER THAN 50-TNTC HPF (0-3)
[2018-03-02 02:15] LABS: Pathc Cast-AUWi Flag 4.65 (0-2.49)
[2018-03-02 02:16] LABS: Specific Gravity, Urine Greater than 1.060 (1.002-1.036)
[2018-03-02 02:30] LABS: Hyaline Casts/LPF 0-3 HYALINE CAST LPF (0-3 Hyaline); Other Casts/LPF None Seen LPF (0-3 Hyaline)
== END 2018-03-02 01:52 | disposition home or self-care (01) ==
LOC: ERS 21:54
DX: R11.2 Nausea with vomiting, unspecified (principal); R19.7 Diarrhea, unspecified; R10.32 Left lower quadrant pain; E11.9 Type 2 diabetes mellitus without complications; F31.9 Bipolar disorder, unspecified; F17.210 Nicotine dependence, cigarettes, uncomplicated; Z71.6 Tobacco abuse counseling; Z79.4 Long term (current) use of insulin; Z79.899 Other long term (current) drug therapy
CPT/HCPCS: 36416; 81003; 81015; 87086; 96374; 99406; J2270; Q0162

== ENCOUNTER 2018-03-02 09:33 | Emergency (ER) | payer MEDICARE ==
[2018-03-02] MEDS ORDERED: Morphine 10 MG/ML VIAL ONE (11:46)
[2018-03-02] MEDS ORDERED: Ondansetron ODT 4 MG TAB ONE ×2 (11:46→16:09)
[2018-03-02 11:55] LABS: #Basophils 0.1 thou/uL (0.0-0.2); #Eosinphils 0.2 thou/uL (0.0-0.7); #Lymphocytes 1.9 thou/uL (1.20-3.40); #Monocytes 0.3 thou/uL (0.11-0.59); #Neutrophils 2.3 thou/uL (1.40-6.50); %Basophils 1.4 % (0.0-1.0); %Eosinophils 3.5 % (0.0-10.0); %Lymphocytes 39.3 % (21.0-51.0); %Monocytes 6.2 % (0.0-10.0); %Neutrophils 49.5 % (42.0-75.0); Mean Corpuscular HGB CONC 34.1 g/dL (32.0-36.0); Mean Corpuscular Hemoglobin 28.9 pg (27.0-31.0); Mean Corpuscular Volume 84.8 fl (81.0-99.0); Mean Platelet Volume 6.7 fL (7.4-10.4); Platelet Count 232 thou/uL (130-400); RBC Distribution Width 13.9 % (11.5-14.5); Red Blood Cell (RBC) Count 4.83 mill/uL (4.20-5.40); White Blood Cell (WBC) Count 4.7 thou/uL (4.8-10.8)
[2018-03-02 12:15] LABS: Bilirubin Small (Negative); Blood, Urine Negative (Negative); Clarity CLOUDY (Clear); Glucose, Urine (Dipstick) Negative (Negative); Leukocyte Negative (Negative); Nitrite Negative (Negative); Protein, Urine (Dipstick) 30 mg/dL (Neg-Trace); Urobilinogen 0.2 mg/dL (0.2-1.0)
[2018-03-02 12:17] LABS: Bacteria/HPF 1+ HPF (None Seen); Squamous Epithelial 21-50 HPF (0-3)
[2018-03-02 12:18] LABS: Pathc Cast-AUWi Flag 11.33 (0-2.49); Specific Gravity, Urine 1.045 (1.002-1.036); Yeast-AUWi Flag 83.4 (0-25.0)
[2018-03-02 12:28] LABS: RBC/HPF None Seen HPF (0-3); Yeast-All Forms 1+ HPF (None Seen)
[2018-03-02 12:29] LABS: Hyaline Casts/LPF 0-3 HYALINE CAST LPF (0-3 Hyaline); Manual Microscopic Reviewed? No Path Casts Seen
[2018-03-02 12:32] LABS: ALT (SGPT) 56 U/L (8-55); AST (SGOT) 51 U/L (5-34); Albumin 4.6 g/dL (3.5-5.0); Alkaline Phosphatase 104 U/L (40-150); Anion Gap 14 mmol/L (10-20); BUN (Urea Nitrogen) 31 mg/dL (9.8-20.1); Bilirubin, Total 0.5 mg/dL (0.2-1.2); Calc. Creatinine Clearance 0 mL/min (70-130); Calcium 9.7 mg/dL (7.8-10.44); Carbon Dioxide 26 mmol/L (22-29); Chloride 100 mmol/L (98-107); Estimated GFR-MDRD 66; Glucose 165 mg/dL (70-105); Lipase 11 U/L (8-78); Potassium 3.5 mmol/L (3.5-5.1); Protein, Total 7.6 g/dL (6.0-8.3); Sodium 136 mmol/L (136-145)
--- NOTE | 2018-03-02 15:27 | CT ---
CT ANGIOGRAM ABDOMEN WITH IV CONTRAST AND 3D RECONSTRUCTIONS: DATE: 03/02/18. HISTORY: Left upper and lower quadrant abdominal pain as well as left lower back pain with nausea and vomiting . The symptoms have progressively getting worse. History of partial left nephrectomy in October due to renal cancer. COMPARISON: Studies on 01/03/18 and 06/02/17. FINDINGS: There are scattered atherosclerotic vascular calcifications within the abdominal aorta and iliac tammy deanne, but the abdominal aorta is normal in caliber without evidence of an aortic dissection. The celiac, superior mesenteric, and inferior mesenteric arteries are patent. Single patent renal ar teries are seen bilaterally. The most proximal bilateral common iliac arteries are patent. Atelectasis is present at each lung base, but no pulmonary nodule is visualized. There is irregularity involving the lateral aspect of the mid portion superior pole left kidney with adjacent low-density area seen. These findings are overall similar to a study on 01/03/18 and are pro bably postoperative in origin. There is a stable low-density lesion within the mid portion of the right kidney which is stable when compared to the study on 06/02/17, although this cannot be characterized as a simple cyst based on att enuation coefficient. There is no evidence of lymphadenopathy. Cholecystectomy changes are noted. The liver, spleen, pancreas, and bilateral adrenal glands demonstrate a normal CT appearance. No lytic or sclerotic osseous lesions are seen. IMPRESSION: 1. Abdominal aorta is normal in caliber without evidence of an aortic dissection. Mild atherosclero tic vascular calcifications are seen. 2. Stable appearance involving the lateral aspect of the mid and superior pole left kidney with stab le low-density area appearing to represent fluid adjacent to the left kidney. This is in the region of previously seen enhancing renal mass, and these findings are likely related to postoperative keith es. 3. Low-density lesion within the mid portion right kidney which is stable compared to the study in 2 017 but cannot be characterized as a simple cyst based on this exam. 4. Cholecystectomy. POS: [facility]
[2018-03-02] MEDS ORDERED: Morphine 4 MG/ML VIAL ONE (16:08)
== END 2018-03-02 17:00 | disposition home or self-care (01) ==
LOC: ERS 09:33
DX: N28.1 Cyst of kidney, acquired (principal); R11.2 Nausea with vomiting, unspecified; E11.9 Type 2 diabetes mellitus without complications; F31.9 Bipolar disorder, unspecified; F17.210 Nicotine dependence, cigarettes, uncomplicated; K58.9 Irritable bowel syndrome, unspecified; Z85.53 Personal history of malignant neoplasm of renal pelvis; Z79.4 Long term (current) use of insulin; Z79.899 Other long term (current) drug therapy; Z71.6 Tobacco abuse counseling
CPT/HCPCS: 36415; 74175; 80053; 83690; 85025; 87086; 96361; 96374; 96376; 99406; J2270; Q0162